=== PATIENT | female | born 1985 | race Caucasian/White ===

== ENCOUNTER → 2017-06-09 | Outpatient (CLI) | payer OTHER ==
[~2017-06-09] MED LIST: FERR240T8 PO; VITA250T3 PO; VITA500T4 PO
[2017-06-09 14:35] LABS: BASOPHIL # 0.1 TH/MM3 (0-0.2); EOSINOPHIL # 0.2 TH/MM3 (0-0.4); EOSINOPHIL % 2.3 % (0.0-4.0); HEMATOCRIT 38.7 % (35.0-46.0); HEMO FLAGS DIFF FINAL; LYMPH % 20.4 % (9.0-44.0); LYMPHOCYTE # 1.5 TH/MM3 (1.0-4.8); MEAN CELL VOLUME 90.7 FL (80.0-100.0); MEAN CORPUSCULAR HEMOGLOBIN 31.5 PG (27.0-34.0); MEAN CORPUSCULAR HGB CONC 34.7 % (32.0-36.0); MONO % 6.4 % (0.0-8.0); NEUT % 69.9 % (16.0-70.0); PLATELET COUNT 200 TH/MM3 (150-450); RED BLOOD COUNT 4.27 MIL/MM3 (4.00-5.30); RED CELL DISTRIBUTION WIDTH 12.3 % (11.6-17.2); WHITE BLOOD COUNT 7.1 TH/MM3 (4.0-11.0)
[2017-06-09 14:38] LABS: BLOOD, URINE NEG (NEG); GLUCOSE,URINE NEG (NEG); KETONE, URINE NEG (NEG); MUCUS URINE FEW /lpf (OCC); NITRITE,URINE NEG (NEG); SQUAMOUS EPITHELIAL CELL URINE <1 /hpf (0-5); URINE COLOR YELLOW (YELLW/STRAW)
[2017-06-09 14:39] LABS: COMMENT (UR) CULT NOT INDICATED; CULTURE IF INDICATED CULT NOT INDICATED
--- NOTE | 2017-06-10 11:17 | EKG ---
Date Performed: 06/09/2017 Time Performed: 13:44:48 PTAGE: 32 years EKG: SINUS BRADYCARDIA BORDERLINE ECG NO PREVIOUS TRACING DOCTOR: Jay Hernandez Interpretating Date/Time 06/10/2017 11:16:14
== END ==
LOC: CPRE 13:23
PROVIDERS: ATTEND Obstetrics & Gynecology
DX: Z01.812 Encounter for preprocedural laboratory examination (principal); Z01.810 Encounter for preprocedural cardiovascular examination; R10.2 Pelvic and perineal pain; R00.1 Bradycardia, unspecified
CPT/HCPCS: 36415; 81001; 84703; 85025; 93005

== ENCOUNTER → 2017-06-12 | Day surgery (SDC) | payer OTHER ==
--- NOTE | 2017-06-11 21:49 | MH ---
cc: GAGE MCCLOUD DATE OF ADMISSION 06/12/2017 ADMISSION DIAGNOSIS Pelvic pain. HISTORY OF PRESENT ILLNESS The patient is a 32 year old white female para 0 with history of increasing pelvic pain over the last seven months, has increased with her menstrual cycle. Her pelvic ultrasound on 01/01/17 was normal. She has failed to improve with analgesics and hormonal contraception. She is now admitted for a laparoscopic evaluation. PAST MEDICAL HISTORY/PAST SURGICAL HISTORY Tonsillectomy and adenoidectomy in childhood. Medications Nuvaring ALLERGIS None. TRANSFUSIONS None. OB HISTORY None. SOCIAL HISTORY She works for ____ [employer]. She is single. Alcohol occasional. Tobacco none. Drugs none. FAMILY HISTORY Noncontributory PHYSICAL EXAMINATION GENERAL: A well-nourished, well-developed white female. VITAL SIGNS: Stable. HEENT: Normal. CHEST: Clear. HEART: Regular rate. BREASTS: Symmetrical. ABDOMEN: Benign. PELVIC: Normal external genitalia and BUS. Vagina is normal. Cervix is normal. Uterus is normal size, shape anterior. No adnexal masses. ASSESSMENT Pelvic pain, dysmenorrhea, PLAN She is now admitted for laparoscopic evaluation. While in the office, I explained the procedure, risks, benefits and complications and possible need for depending on findings. MD FRED Smith/ /9:21 PM /9:36 PM
[~2017-06-12] VITALS: Ht 172.7 cm; Wt 73.4 kg
[~2017-06-12] MED LIST changes: +ACETAMINOPHEN 1000 MG/100 ML VIAL IV PRN; +BUPIVACAINE/EPINEPHRINE 0.5% PF 10 ML VIAL ONE; +CHLORHEXIDINE GLUCONATE 2 % 1 PACK (2 CLOTHS) TOPICAL PRN; +DEXAMETHASONE SOD PHOS 4 MG/ML VIAL ONE; +DO NOT ADM ANY ANTICOAGULANT DRUGS PRN; +FAMOTIDINE 20 MG/2 ML VIAL ONE; +INSULIN HUMAN REGULAR 1,000 UNITS/10 ML VIAL SQ PRN; +KETOROLAC TROMETHAMINE 60 MG/2 ML (IM) VIAL IM ONE; +LACTATED RINGER'S 1000 ML IV PRN; +METOCLOPRAMIDE HCL 10 MG/2 ML VIAL IV PRN; +METOPROLOL TARTRATE 25 MG TAB PO PRN; +MIDAZOLAM HCL 2 MG/2 ML VIAL ONE; +ONDANSETRON HCL 4 MG/2 ML VIAL IV PUSH ONE; +ONDANSETRON HCL 4 MG/2 ML VIAL ONE; +OXYTOCIN 10 UNIT/ML AMP ONE; +POVIDONE IODINE 5% (ANTISEPSIS KIT) 4 APPLICATIONS EACH NARE PRN; +PROPOFOL 200 MG/20 ML AMP IV ONE; +SODIUM CHLORID 0.9% 500 ML IV PRN; +SUGAMMADEX SODIUM 200 MG/2 ML VIAL IV PUSH ONE; +ceFAZolin 1,000 MG/NS 100 ML IV SCH; +oxyCODONE/ACETAMINOPHEN 5 MG/325 MG TAB PO PRN
[2017-06-12 05:50] VITALS: BP 138/77; PULSE 64; RESP 16; TEMP 98.9; O2SAT 100
--- NOTE | 2017-06-12 07:46 | MP ---
cc: GAGE MCCLOUD DATE OF SURGERY 06/12/2017 PREOPERATIVE DIAGNOSIS Pelvic pain POSTOPERATIVE DIAGNOSIS Pelvic pain with stage I endometriosis PROCEDURE Laparoscopy with coagulation endometriosis ANESTHESIA General ET SURGEON Gage Mccloud MD PIGGYBACK CLERK Danielle Llanes ESTIMATED BLOOD LOSS Less than 5 cc FLUIDS Half liter of crystalloid. OBJECTIVE FINDINGS Following the induction of adequate general endotracheal anesthesia, the patient was prepped and draped supine on the operating table in the dorsal partition in the usual sterile fashion with the bladder being drained via in and out catheterization. Exam under anesthesia revealed a normal size shape anterior uterus was no adnexal masses. A heavy weighted speculum was placed in the posterior fornix of the vagina. The anterior lip of the cervix grasped with a single-toothed tenaculum. Cervix and uterus sounded to 8 cm. Cervix dilated to a #14 Hanks dilator. HUMI was placed and the other vaginal instruments removed. The c d still operator's gloves were changed. The abdomen was opened through a 1/2 cm infraumbilical incision. A five port was placed followed by laparoscope with attached video cam and a second five port just above the pubic hairline in the midline. Pelvic contents, the uterus, tubes and ovaries were all normal size and shape. There was one implant endometriosis on the left uterosacral and on the right ovary. These were coagulated with Kleppinger's. The remainder of the abdomen was normal including the appendix and liver edge. There were no adhesions or scar tissue. At the completion of the procedure, the scope was removed, gas was allowed to escape. The ports were removed and each port site injected with two 1/2 cc at 0.5% Marcaine with epinephrine and then closed with Monocryl 3-0 subcuticular. HUMI was removed from the vagina. The patient's legs taken out of the stirrups. She was awakened and taken to the recovery room in good condition. MD MIRIAM Urbina/AMMON /7:27 AM /7:33 AM BRIDGETTE
[2017-06-12 08:33] VITALS: BP 126/74; PULSE 60; RESP 16; TEMP 98.8; O2SAT 100
== END | disposition home or self-care (01) ==
LOC: HSDC 05:21 → EDUNIT# 07:00
PROVIDERS: ATTEND Obstetrics & Gynecology
DX: N80.1 Endometriosis of ovary (principal); N80.8 Other endometriosis; R10.2 Pelvic and perineal pain; N94.6 Dysmenorrhea, unspecified
CPT/HCPCS: 00840; 58662; J0131; J0690; J1100; J1885; J2250; J2405; J3010; J7120; J2590